=== PATIENT | female | born 1940 | race Caucasian/White ===

== ENCOUNTER → 2019-06-05 | Outpatient (CLI) | payer OTHER ==
[~2019-06-05] VITALS: Ht 160 cm; Wt 72.6 kg
[2019-06-05 12:12] VITALS: BP 113/67
[2019-06-05 12:28] LABS: HEMATOCRIT 28.4 % (37.0-47.0); HEMOGLOBIN 9.7 gm/dL (12.0-15.0); MCH 34.8 pg (26.0-34.0); MCHC 34.2 g/dL (28.0-37.0); MCV 101.8 fL (80.0-100.0); MPV 7.9 fl. (7.2-11.1); RBC 2.79 mil/uL (4.20-5.00); RDW-CV 17.5 % (10.5-14.5); WBC 5.8 thou/uL (4.0-11.0)
[2019-06-05 12:35] LABS: CALCIUM 8.8 mg/dL (8.5-10.1); CREATININE 2.2 mg/dL (0.6-1.3); POTASSIUM 4.6 mmol/L (3.5-5.1)
[2019-06-05 12:38] LABS: APTT 25.7 Seconds (25.0-31.3); PROTIME 10.1 Seconds (9.20-11.50)
== END | disposition home or self-care (01) ==
LOC: M.INT 11:02
PROVIDERS: Radiology Diagnostic Radiology
DX: R18.8 Other ascites (principal); Z53.8 Procedure and treatment not carried out for other reasons; R14.0 Abdominal distension (gaseous); Z98.890 Other specified postprocedural states; Z85.43 Personal history of malignant neoplasm of ovary